=== PATIENT | female | born 1960 | race Hispanic/Latino ===

== ENCOUNTER 2022-03-08 23:55 | Emergency (ER) | payer BC ==
[~2022-03-08] VITALS: Ht 160 cm; Wt 60.3 kg
[2022-03-09] MEDS ORDERED: ATIVAN1 MG PO (01:41)
[2022-03-09] MEDS ORDERED: LORAZEPAM 1 MG TAB PO ONE (01:45)
[2022-03-09] MEDS ORDERED: LORAZEPAM 0.5 MG TAB ONE (01:50)
== END 2022-03-09 02:21 | disposition home or self-care (01) ==
LOC: FSED 03-09 00:02
DX: R51.9 Headache, unspecified (principal); F41.9 Anxiety disorder, unspecified; F43.25 Adjustment disorder with mixed disturbance of emotions and conduct; R03.0 Elevated blood-pressure reading, without diagnosis of hypertension
CPT/HCPCS: 99282